=== PATIENT | male | born 1975 | race Caucasian/White ===

== ENCOUNTER 2020-05-22 09:33 | Outpatient (CLI) | payer OTHER, SELFPAY | END 2020-05-22 09:34 | disposition home or self-care (01) | LOC: ANHCOVIDVC 09:33 | PROVIDERS: PCP Internal Medicine | DX: Z23 Encounter for immunization (principal) | CPT/HCPCS: 0001A; 91300 ==

== ENCOUNTER 2020-06-12 09:22 | Outpatient (CLI) | payer OTHER, SELFPAY | END 2020-06-12 09:23 | disposition home or self-care (01) | LOC: ANHCOVIDVC 09:22 | PROVIDERS: PCP Internal Medicine | DX: Z23 Encounter for immunization (principal) | CPT/HCPCS: 0002A; 91300 ==

== ENCOUNTER 2020-06-26 09:57 | Outpatient (CLI) | payer OTHER, SELFPAY ==
[2020-06-26 10:58] LABS: Hematocrit 41.8 % (42.0-52.0); Hemoglobin 13.8 g/dL (14.0-18.0); Mean Corpuscular Hemoglobin 31.9 pg (26-34); Mean Corpuscular Volume 96.5 fl (80-100); Mean Platelet Volume 10.1 fl (7.4-10.4); Platelet Count Result 287 k/mm3 (150-375); Red Blood Count 4.33 M/mm3 (4.6-6.20); Red Cell Distribution Width 12.5 % (11.5-14.5); White Blood Count 4.4 K/mm3 (4.5-10.0)
[2020-06-26 11:52] LABS: Free T4 Free Thyroxine 1.01 ng/mL (0.78-2.19); Vitamin D 25 Hydroxy 29.3 ng/mL
[2020-06-26 11:56] LABS: HIV 1/2 Ab P24 Ag Result Negative (Negative)
[2020-06-26 12:10] LABS: Hepatitis B Surface Antigen Negative (Negative); Rubella IgG Antibody 57.4 IU/ML
[2020-06-26 12:25] LABS: Hepatitis C Virus Antibody Negative (Negative)
[2020-06-26 13:04] LABS: Rapid Plasma Reagin Non-Reactive (NonReactive)
[2020-06-29 08:16] LABS: Prolactin 3.3 ng/mL (***)
== END 2020-06-26 09:58 | disposition home or self-care (01) ==
LOC: ANHLAB 10:20
PROVIDERS: PCP Internal Medicine
DX: Z11.9 Encounter for screening for infectious and parasitic diseases, unspecified (principal); Z13.9 Encounter for screening, unspecified; Z13.21 Encounter for screening for nutritional disorder; Z01.83 Encounter for blood typing
CPT/HCPCS: 36415; 82306; 84146; 84439; 84443; 85027; 86592; 86703; 86762; 86803; 86900; 86901; 87340; G0432

== ENCOUNTER 2020-08-20 07:40 | Outpatient (CLI) | payer OTHER, SELFPAY | END 2020-08-20 07:41 | disposition home or self-care (01) | PROVIDERS: PCP Internal Medicine | DX: N91.2 Amenorrhea, unspecified (principal) | CPT/HCPCS: 36415; 84702 ==

== ENCOUNTER 2020-08-22 08:22 | Outpatient (CLI) | payer OTHER, SELFPAY ==
[2020-08-22 09:09] LABS: Beta HCG Quantitative 66.09 mIU/ML
== END 2020-08-22 08:23 | disposition home or self-care (01) ==
LOC: ANHLAB 08:25
PROVIDERS: PCP Internal Medicine
DX: N91.2 Amenorrhea, unspecified (principal)
CPT/HCPCS: 36415; 84702

== ENCOUNTER 2020-08-25 08:23 | Outpatient (CLI) | payer OTHER, SELFPAY ==
[2020-08-25 09:27] LABS: Beta HCG Quantitative 235.53 mIU/ML
== END 2020-08-25 08:24 | disposition home or self-care (01) ==
PROVIDERS: PCP Internal Medicine
DX: N91.2 Amenorrhea, unspecified (principal)
CPT/HCPCS: 36415; 84702

== ENCOUNTER 2020-09-26 12:28 | Outpatient (CLI) | payer OTHER, SELFPAY ==
[2020-09-26 13:38] LABS: Basophils Percent Auto 0.2 % (0.2-1.2); Eosinophils Absolute Auto 0.1 K/mm3 (0-0.3); Eosinophils Percent Auto 1.3 % (0-4.4); Hematocrit 38.3 % (37.0-47.0); Hemoglobin 12.5 g/dL (12.0-15.0); Immature Granulocyte Absolute 0.04 K/mm3 (0.00-0.031); Immature Granulocyte Percent A 0.4 % (0-0.5); Lymphocytes Absolute Auto 1.67 K/mm3 (0.9-3.2); Lymphocytes Percent Auto 18.1 % (18.3-44.2); Mean Corpuscular HGB Conc 32.6 g/dl (32-36); Mean Corpuscular Hemoglobin 31.9 pg (26-34); Mean Corpuscular Volume 97.7 fl (80-100); Mean Platelet Volume 9.9 fl (7.4-10.4); Monocytes Absolute Auto 0.6 K/mm3 (0.1-0.6); Monocytes Percent Auto 6.2 % (2.6-8.5); Neutrophils Absolute Auto 6.8 K/mm3 (1.3-6.7); Neutrophils Percent Auto 73.8 % (45.5-73.1); Platelet Count Result 346 k/mm3 (150-375); Red Blood Count 3.92 M/mm3 (4.2-5.4); Red Cell Distribution Width 13.2 % (11.5-14.5); White Blood Count 9.2 K/mm3 (4.5-10.0)
[2020-09-26 14:37] LABS: Thyroid Stimulating Hormone Reflex 0.922 uIU/mL (0.465-4.68)
[2020-09-26 14:39] LABS: Hepatitis B Surface Antigen Negative (Negative); Rubella IgG Antibody 50.1 IU/ML
[2020-09-26 14:47] LABS: HIV 1/2 Ab P24 Ag Result Negative (Negative)
[2020-09-29 09:52] LABS: Rapid Plasma Reagin Non-Reactive (NonReactive)
[2020-10-01 05:56] LABS: Progesterone 63.5 ng/mL (***)
== END 2020-09-26 12:29 | disposition home or self-care (01) ==
PROVIDERS: PCP Internal Medicine
DX: Z36.9 Encounter for antenatal screening, unspecified (principal); Z3A.00 Weeks of gestation of pregnancy not specified
CPT/HCPCS: 36415; 84144; 84443; 84702; 85025; 85461; 86592; 86703; 86762; 87086; 87340; G0432

== ENCOUNTER 2021-12-10 21:22 | Emergency (ER) | payer OTHER, SELFPAY ==
--- NOTE | ~2021-12-10 | XR_ITS ---
XR foot LT min 3V 12/10/2021 21:44 Indication: Left foot pain Procedure: 4 views left foot Comparison: No prior studies for comparison. Findings: There is mildly displaced fracture of the fifth proximal phalanx with lateral displacement and angulation. No other fracture. Lisfranc joint intact. Impression: 1: Mildly displaced fracture left fifth proximal phalanx with lateral displacement and angulation. Reviewed, dictated and finalized at location A. Impression: 1: Mildly displaced fracture left fifth proximal phalanx with lateral displacem ent and angulation.
[2021-12-10 21:25] VITALS: BP 123/56; PULSE 79; RESP 18; TEMP 36.6; O2SAT 100
[2021-12-10] MEDS: HYDROcodone/acetaminophen (*CRX) 5-325 MG TABLET 1 TAB PO (23:54)
--- NOTE | 2021-12-11 00:15 | ED.LOWEXIN ---
HPI - Extremity Injury (Lower) General Chief Complaint: Extremity Injury, Lower <Rhina Willis PA-C - Last Filed: 12/11/21 00:22> Stated Complaint: toe pain <GABBI Starks Last Filed: 12/11/21 00:22> Time Seen by Provider: 12/10/21 23:11 <GABBI Starks Last Filed: 12/11/21 00:22> Source: patient <GABBI Starks Last Filed: 12/11/21 00:22> Mode of arrival: ambulatory <GABBI Starks Last Filed: 12/11/21 00:22> Limitations: no limitations <GABBI Starks Last Filed: 12/11/21 00:22> History of Present Illness HPI Narrative: This is a 46-year-old female that presents to the emergency department for an injury to the left fifth toe sustained just prior to arrival. Reports she accidentally hit her foot on the bottom of a couch. Reports pain to the area with decreased range of motion. Denies numbness. <Rhina Willis PA-C - Last Filed: 12/11/21 00:22> Related Data Home Medications: Home Medications Medication Instructions Recorded Confirmed cholecalciferol (vitamin D3) 25 25 mcg PO DAILY 08/26/20 mcg (1,000 unit) capsule dexamethasone 0.75 mg tablet 0.75 mg PO DAILY 08/26/20 folic acid 1 mg tablet 1 mg PO DAILY 08/26/20 prenat.vits,jessi,xqz-edvy-mcgtt 1 tablet PO DAILY 08/26/20 progesterone 50 mg/mL 5 mg IM DAILY 08/26/20 intramuscular oil aspirin 81 mg tablet,delayed 81 mg PO DAILY 03/10/21 03/10/21 release (Adult Low Dose Aspirin) cholecalciferol (vitamin D3) 25 25 mcg PO DAILY 03/10/21 03/10/21 mcg (1,000 unit) capsule docusate sodium 50 mg capsule 50 mg PO DAILY 03/10/21 03/10/21 (Colace Clear) lansoprazole 15 mg capsule,delayed 15 mg PO DAILY 03/10/21 03/10/21 release (Prevacid 24Hr) prenat.vits,jessi,gph-zvix-wdhzt 1 tablet PO DAILY 03/10/21 03/10/21 <Rhina Willis PA-C - Last Filed: 12/11/21 00:22> Allergies/Adverse Reactions: Allergies Allergy/AdvReac Type Severity Reaction Status Date / Time No Known Allergies Allergy Verified 03/13/21 15:09 <Rhina Willis PA-C - Last Filed: 12/11/21 00:22> Review of Systems Review of Systems: CONSTITUTIONAL: Denies fever MUSCULOSKELETAL: Reports joint pain, and myalgia. NEUROLOGIC: Denies numbness <Rhina Willis PA-C - Last Filed: 12/11/21 00:22> All systems reviewed & are unremarkable except as noted in HPI and below <Rhina Willis PA-C - Last Filed: 12/11/21 00:22> PMFSH Past Medical History Medical History: Medical History (Updated 12/11/21 @ 00:22 by Rhina Willis PA-C) Glaucoma <Rhina Willis PA-C - Last Filed: 12/11/21 00:22> Surgical History Surgical History: Surgical History (Updated 03/13/21 @ 15:09 by Janel Cruz) H/O dilation and curettage <Rhina Willis PA-C - Last Filed: 12/11/21 00:22> Family History Family History: Family History (System 03/13/21 @ 15:09 by Janel Cruz) Father Alcoholism Heart problem Sibling Alcoholism <GABBI Starks Last Filed: 12/11/21 00:22> Social History Social History: Social History (System 03/13/21 @ 15:09 by Janel Cruz) Smoking status: Never smoker <Rhina Willis PA-C - Last Filed: 12/11/21 00:22> Exam Narrative: GENERAL: Well-appearing, well-nourished, and in no acute distress. HEAD: Normocephalic, atraumatic. EYES: EOMI. EXTREMITIES: Decreased active range of motion in the left fifth toe with obvious deformity. Normal DP pulse. Normal sensation SKIN: Warm, dry, no rash. NEURO: No focal deficits. Alert and oriented x3. PSYCH: Normal mood and affect <Rhina Willis PA-C - Last Filed: 12/11/21 00:22> Course HCC CODERS/PA Physician Supervision For this patient encounter, I reviewed the HCC CODERS or PA documentation, treatment plan, and medical decision making <Juan Pablo Javier MD - Last Filed: 12/11/21 01:05> Vital Signs Vital signs: Vital Signs Temperature 97.9 F 12/10/21 21:25 Pulse Ra
[2021-12-11 00:36] VITALS: BP 124/69; PULSE 72; RESP 18; O2SAT 96
== END 2021-12-11 00:36 | disposition home or self-care (01) ==
PROVIDERS: Emergency Provider Emergency Medicine; PCP Internal Medicine
DX: S92.512A Displaced fracture of proximal phalanx of left lesser toe(s), initial encounter for closed fracture (principal); H40.9 Unspecified glaucoma; Z79.82 Long term (current) use of aspirin; W22.03XA Walked into furniture, initial encounter
CPT/HCPCS: 28515; 28660; 73630; 99283; 99285; A9270

== ENCOUNTER 2022-03-27 08:37 | Outpatient (CLI) | payer OTHER, SELFPAY ==
[2022-03-27 09:12] LABS: Eosinophils Absolute Auto 0.1 K/mm3 (0-0.3); Eosinophils Percent Auto 1.7 % (0-4.4); Hematocrit 39.1 % (37.0-47.0); Hemoglobin 12.7 g/dL (12.0-15.0); Immature Granulocyte Absolute 0.01 K/mm3 (0.00-0.031); Immature Granulocyte Percent A 0.2 % (0-0.5); Lymphocytes Absolute Auto 1.28 K/mm3 (0.9-3.2); Lymphocytes Percent Auto 31.4 % (18.3-44.2); Mean Corpuscular HGB Conc 32.5 g/dl (32-36); Mean Corpuscular Hemoglobin 31.1 pg (26-34); Mean Corpuscular Volume 95.8 fl (80-100); Mean Platelet Volume 9.6 fl (7.4-10.4); Monocytes Absolute Auto 0.4 K/mm3 (0.1-0.6); Monocytes Percent Auto 8.6 % (2.6-8.5); Neutrophils Absolute Auto 2.3 K/mm3 (1.3-6.7); Neutrophils Percent Auto 57.1 % (45.5-73.1); Platelet Count Result 270 k/mm3 (150-375); Red Blood Count 4.08 M/mm3 (4.2-5.4); Red Cell Distribution Width 12.2 % (11.5-14.5); White Blood Count 4.1 K/mm3 (4.5-10.0)
[2022-03-27 09:40] LABS: Vitamin D 25 Hydroxy 27.7 ng/mL
[2022-03-27 09:52] LABS: Alanine Aminotransferase 17 U/L (6-35); Albumin Level 4.1 g/dL (3.5-5.1); Alkaline Phosphatase 92 U/L (38-126); Anion Gap 6 mmol/L (8-16); Aspartate Amino Transferase 22 U/L (14-36); Bilirubin,Total 0.5 mg/dL (0.2-1.3); Blood Urea Nitrogen 14 mg/dL (7-17); Calcium 8.7 mg/dL (8.4-10.2); Carbon Dioxide 28 mmol/L (22-30); Chloride 106 mmol/L (98-107); Cholesterol 219 mg/dL (0-200); Estimated Glomerular Filt Rate > 60; Glucose 93 mg/dL (65-110); HDL Direct 38 mg/dL; Potassium 4.1 mmol/L (3.4-5.0); Sodium 140 mmol/L (137-145); Triglycerides 186 mg/dL (<150)
[2022-03-27 10:03] LABS: LDL Cholesterol Direct 116 mg/dL
[2022-03-27 10:57] LABS: Folic Acid 19.1 ng/mL (2.76->20)
== END 2022-03-27 08:38 | disposition home or self-care (01) ==
LOC: ANHLAB 08:39
PROVIDERS: PCP Internal Medicine; Visit Provider Internal Medicine
DX: Z00.00 Encounter for general adult medical examination without abnormal findings (principal); R53.83 Other fatigue; R79.89 Other specified abnormal findings of blood chemistry
CPT/HCPCS: 36415; 80053; 80061; 82306; 82607; 82746; 84443; 85025

== ENCOUNTER → 2023-04-02 09:48 | Outpatient (CLI) | payer OTHER, SELFPAY ==
--- NOTE | ~2023-04-02 | MM_ITS ---
EXAMINATION: MM screening socorro BI w james HISTORY: Screening TECHNIQUE: Craniocaudal and mediolateral oblique 3-D tomosynthesis images were obtained and synthetic 2-D images were generated. CAD analysis was submitted and interpreted. COMPARISON: No prior mammogram is available for comparison at this institution. BREAST PARENCHYMAL COMPOSITION: There are scattered areas of fibroglandular density. FINDINGS: There is no evidence of suspicious mass, calcification, or architectural distortion to sugg est malignancy in either breast. There has been no suspicious interval change. IMPRESSION: 1. No mammographic evidence of malignancy. 2. Recommend routine screening mammography in one year. BI-RADS Category 1: Negative Reviewed, dictated and finalized at location A. OSION CONTROL SPECIALIST
== END ==
DX: Z12.31 Encounter for screening mammogram for malignant neoplasm of breast (principal)
CPT/HCPCS: 77063; 77067

== ENCOUNTER 2023-07-25 09:38 | Outpatient (CLI) | payer OTHER, SELFPAY ==
[2023-07-25 10:47] LABS: Basophils Percent Auto 0.9 % (0.2-1.2); Eosinophils Absolute Auto 0.1 K/mm3 (0-0.3); Eosinophils Percent Auto 1.5 % (0-4.4); Hematocrit 39.7 % (37.0-47.0); Hemoglobin 12.8 g/dL (12.0-15.0); Immature Granulocyte Absolute 0.01 K/mm3 (0.00-0.031); Immature Granulocyte Percent A 0.3 % (0-0.5); Lymphocytes Absolute Auto 1.19 K/mm3 (0.9-3.2); Lymphocytes Percent Auto 36.8 % (18.3-44.2); Mean Corpuscular HGB Conc 32.2 g/dl (32-36); Mean Corpuscular Hemoglobin 31.5 pg (26-34); Mean Corpuscular Volume 97.8 fl (80-100); Mean Platelet Volume 10.3 fl (7.4-10.4); Monocytes Absolute Auto 0.3 K/mm3 (0.1-0.6); Monocytes Percent Auto 7.7 % (2.6-8.5); Neutrophils Absolute Auto 1.7 K/mm3 (1.3-6.7); Neutrophils Percent Auto 52.8 % (45.5-73.1); Platelet Count Result 259 k/mm3 (150-375); Red Blood Count 4.06 M/mm3 (4.2-5.4); Red Cell Distribution Width 12.9 % (11.5-14.5); White Blood Count 3.2 K/mm3 (4.5-10.0)
[2023-07-25 11:03] LABS: Alanine Aminotransferase 17 U/L (6-35); Albumin Level 4.6 g/dL (3.5-5.1); Alkaline Phosphatase 89 U/L (38-126); Anion Gap 7 mmol/L (4-12); Aspartate Amino Transferase 24 U/L (14-36); Bilirubin,Total 0.7 mg/dL (0.2-1.3); Blood Urea Nitrogen 15 mg/dL (7-17); Calcium 9.1 mg/dL (8.4-10.2); Carbon Dioxide 29 mmol/L (22-30); Chloride 104 mmol/L (98-107); Cholesterol 213 mg/dL (0-200); Estimated Glomerular Filt Rate > 60; Glucose 86 mg/dL (65-110); HDL Direct 44 mg/dL; Sodium 140 mmol/L (137-145); Triglycerides 123 mg/dL (<150)
[2023-07-25 11:15] LABS: LDL Cholesterol Direct 131 mg/dL
[2023-07-25 11:43] LABS: Vitamin D 25 Hydroxy 35.4 ng/mL
== END 2023-07-25 09:39 | disposition home or self-care (01) ==
PROVIDERS: Visit Provider Emergency Medicine
DX: R53.83 Other fatigue (principal); E78.1 Pure hyperglyceridemia
CPT/HCPCS: 36415; 80053; 80061; 82306; 82607; 85025

== ENCOUNTER 2023-12-01 09:54 | Outpatient (CLI) | payer OTHER, SELFPAY ==
[2023-12-02 12:08] LABS: FSH 52.7 mIU/mL
== END 2023-12-01 09:55 | disposition home or self-care (01) ==
LOC: ANHLAB 09:57
DX: N95.1 Menopausal and female climacteric states (principal)
CPT/HCPCS: 36415; 83001; 84443

== ENCOUNTER 2023-12-16 15:02 | Emergency (ER) | payer OTHER, SELFPAY ==
[2023-12-16 15:13] VITALS: BP 109/60; PULSE 108; RESP 18; TEMP 37; O2SAT 99
--- NOTE | 2023-12-16 15:16 | ED.URI ---
HPI - URI/Sore Throat General Chief Complaint: Upper Respiratory Infection Stated Complaint: sore throat / fever Time Seen by Provider: 12/16/23 15:16 Source: patient, RN notes reviewed and old records reviewed Mode of arrival: ambulatory Limitations: no limitations History of Present Illness HPI Narrative: patient presents with complaints of nasal congestion, left ear pain, sore throat, fever. She reports symptoms began yesterday she has been taking Tylenol and ibuprofen with good results. She reports T-max of 100.9?. No difficulty swallowing. No shortness of breath. No cough. Denies any other concerns at this time Related Data Allergies Allergy/AdvReac Type Severity Reaction Status Date / Time No Known Allergies Allergy Verified 12/16/23 15:20 Review of Systems Review of Systems: All systems reviewed & are unremarkable except as noted in HPI and below Constitutional: Constitutional: Reports no additional constitutional complaints ENT: Reports system reviewed and no additional complaints, except as documented, Reports as per HPI, Reports otalgia, Reports nasal congestion, Reports nasal discharge and Reports sore throat Cardiovascular: Cardiovascular: Reports no additional cardiovascular complaints Respiratory: Respiratory: Reports no additional respiratory complaints Gastrointestinal: Gastrointestinal: Reports no additional gastrointestinal complaints [facility] Past Medical History Medical History (Updated 12/16/23 @ 15:27 by Jacquelin Hector APRN) delivery delivered Glaucoma Surgical History Surgical History H/O dilation and curettage Family History Family History Father Alcoholism Heart problem Sibling Alcoholism Grandparent Bladder cancer Diabetes mellitus Cerebrovascular accident Social History Social History Smoking status: Never smoker Alcohol intake: current Alcohol use details: 3 x monthly Substance use: never Do You Feel Safe in your Home?: Yes Lack of Transportation: No Lack of Food: Never True Current Housing: I Have Housing Concerned About Future Housing: No Difficulty Paying Gas/Electric Bills: No Difficulty Paying for Meds: No Currently Unemployed: No Education: Master's Degree or Higher Difficulty w/ Childcare or Family Care: No Comments At the time of my signature, I reviewed and agree with the nursing past medical, surgical, social, and family history. There is no relevant family history pertinent to the patient complaint. Exam Const: General: cooperative, no acute distress, alert and awake Orientation/consciousness: oriented to person, oriented to place and oriented to time HENMT: Head: normal to inspection Ears: TM abnormal bulging on the left, dull on the left and erythematous on the left Mouth: Yes moist mucous membranes Throat: posterior oropharynx abnormal erythema Resp: Effort & Inspection: normal respiratory effort and able to speak in complete sentences Auscultation: clear to auscultation bilaterally, no crackles, no rales, no rhonchi and no wheezes Cardio: Palpation: normal PMI Rate: regular rate Rhythm: regular rhythm Heart sounds: S1 normal heart sound present and S2 normal heart sound present Neuro: General: oriented to person, oriented to place and oriented to time Cranial nerves: Yes CN's II-XII intact bilaterally Psych: Appearance: grossly normal Thought process: Normal thought process present Insight: Good insight present (Psych) Judgement: Good judgement present (Psych) Course Course Level of Care: Express Care Visit Vital Signs Vital signs: Vital Signs Temperature 98.6 F 12/16/23 15:13 Pulse Rate 108 H 12/16/23 15:13 Respiratory Rate 18 12/16/23 15:13 Blood Pressure 109/60 12/16/23 15:13 Pulse Oximetry 99 12/16/23 15:1
== END 2023-12-16 15:31 | disposition home or self-care (01) ==
PROVIDERS: Emergency Provider Nurse Practitioner Family
DX: H66.002 Acute suppurative otitis media without spontaneous rupture of ear drum, left ear (principal); H40.9 Unspecified glaucoma
CPT/HCPCS: 99213; G0463

== ENCOUNTER 2024-09-15 07:54 | Outpatient (CLI) | payer OTHER, SELFPAY ==
--- NOTE | ~2024-09-15 | MM_ITS ---
EXAMINATION: MM screening socorro BI w james HISTORY: Screening TECHNIQUE: Craniocaudal and mediolateral oblique 3-D tomosynthesis images were obtained and synthetic 2-D images were generated. CAD analysis was submitted and interpreted. COMPARISON: 04/02/2023 BREAST PARENCHYMAL COMPOSITION: Not dense: There are scattered areas of fibroglandular density. FINDINGS: There is no evidence of suspicious mass, calcification, or architectural distortion to sugg est malignancy in either breast. There has been no suspicious interval change. IMPRESSION: 1. No mammographic evidence of malignancy. 2. Recommend routine screening mammography in one year. BI-RADS Category 1: Negative Reviewed, dictated and finalized at location []
== END 2024-09-15 07:55 | disposition home or self-care (01) ==
LOC: MICIMG 07:54
DX: Z12.31 Encounter for screening mammogram for malignant neoplasm of breast (principal)
CPT/HCPCS: 77063; 77067

== ENCOUNTER 2025-02-19 09:54 | Outpatient (CLI) | payer OTHER, SELFPAY ==
--- OUTSIDE RECORDS SUMMARY | 2025-02-19 11:15 | XMS_ITS | Clinical Summary ---
Author Organization [facility] Address [address] [place] [id number] Care Team Providers Care Machinist Set Up Name Role Phone Zafar Naranjo MD Primary Care Provider [phone] Allergies No known active allergies Medications norethindrone (MICRONOR) 0.35 mg tablet Take 1 tablet by mouth daily 2 Active meloxicam (MOBIC) 15 mg tablet Take 1 daily for 7-14 days, then 1 daily as needed. Do not take other anti-inflammatory medication with this prescription. May take acetaminophen as needed with this prescription. 30 tablet 1 4 Active Active Problems Problem Noted Date Diagnosed Date Encounter for removal of sutures 09/28/2017 Anovulation 01/31/2017 Encounter for contraceptive management 7 Rosacea 12/10/2015 Keratosis, senilis 12/10/2015 Multiple benign melanocytic nevi 12/10/2015 Tendinitis of left rotator cuff 03/20/2015 Surgical History Surgery Date Site/Laterality Comments SECTION Family History Medical History Relation Name Comments Alcohol abuse Father Alcohol addict ion - (Added by TW Conv) Arthritis Father Family history of arthritis - (Added by TW Conv) Gout Father Family history of gout - (Added by TW Conv) Hypertension Other Reported Previo us High Blood Pressure - Father (Added by TW Conv) Lung disease Other Pulmonary Disea se - Father (Added by TW Conv) Relation Name Status Comments Father Other Social History Tobacco Use Types Packs/Day Years Used Date Smoking Tobacco: Never Passive Smoke Exposure: Never Smokeless Tobacco: Never Tobacco Cessation:Counseling Given: Not Answered Comments Unknown Sex and Gender Information Value Date Recorded Sex Assigned at Not on file Legal Sex Female 12:35 PM PRESSURE WELDER Gender Identity Not on file Sexual Orientation Not on file Last Filed Vital Signs Vital Sign Reading Time Taken Comments Blood Pressure 109/73 03/29/2017 8:11 AM PRESSURE WELDER Pulse - - Temperature - - Respiratory Rate - - Oxygen Saturation - - Inhaled Oxygen Concentration - - Weight 64.9 kg (143 lb) 02/01/2024 12:36 PM PRESSURE WELDER Height 167.6 cm (5' 6) 02/01/2024 12:36 PM PRESSURE WELDER Body Mass Index 23.08 02/01/2024 12:36 PM PRESSURE WELDER Plan of Treatment Health Maintenance Due Date Last Done Comments Breast Cancer Screening-Mammogram 1976 Cervical Cancer Screening 1976 Colon Cancer Screening-Colonoscopy 1976 Depression Screening 1976 Hepatitis C Screening 1976 Hepatitis B Screening 01/24/1994 Regular Well Visit/Exam 18-64 01/24/1994 Covid-19 Vaccine ( season) 2024 12/03/2021, 02/09/2021, 06/12/2020, Additional history exists Influenza Vaccine (#1) 2024 , 12/03/2021, 12/08/2020, Additional history exists DTaP/Tdap/Td Vaccine (5 - Td or Tdap) 02/02/2031 02/02/2021, 08/03/2019, 07/14/2017, Additional history exists Pneumococcal vaccine <65 Aged Out No longer eligible based on patient's age to [place] [address] [facility] Care Teams Machinist Set Up Relationship Specialty Start [place] [address] [place] [address] PCP - General Internal Medicine 02/01/24
--- OUTSIDE RECORDS SUMMARY | 2025-02-19 11:15 | XMS_ITS | Clinical Summary ---
Author Organization [facility] Address [address] [place] [address] Care Team Providers Care Tar Worker Name Role Phone Jaimee Mcgee MD Primary Care Provider [phone] Source Comments [facility],non-owned Affiliates and Associated Physician Practices is amultiple site organization consisting of ambulatory clinics and hospital sitesin [place], [place], [place] and [place]. This disclosure is being madepursuant to the Care Everywhere program and may not contain all information available regarding this patient. Last updated 17.[facility] [employer] Allergies No known active allergies Active Problems Problem Noted Date Diagnosed Date Laceration 12/15/2009 Immunizations Immunization Administration Dates Next Due INFLUENZA VACCINE, TRIV. (FL UZONE; FLULAVAL; FLUARIX; AFLURIA TRIVALENT; 6MO+), 0.5 ML (IIV3) 12/19/2023 Social History Tobacco Use Types Packs/Day Years Used Date Smoking Tobacco: Never Alcohol Use Standard Drinks/Week Comments Yes 0 (1 standard drink = 0.6 oz pur e alcohol) social Comments Unknown Sex and Gender Information Value Date Recorded Sex Assigned at Not on file Legal Sex Female 9:27 AM STUNTMAN Gender Identity Not on file Sexual Orientation Not on file Last Filed Vital Signs Vital Sign Reading Time Taken Comments Blood Pressure 114/74 12/15/2009 6:28 PM CDT Pulse 73 12/15/2009 6:28 PM CDT Temperature 37.1 C (98.8 F) 12/15/2009 6:28 PM CDT Respiratory Rate 16 12/15/2009 6:28 PM CDT Oxygen Saturation 100% 12/15/2009 6:28 PM CDT Inhaled Oxygen Concentration - - Weight 59 kg (130 lb) 12/15/2009 6:28 PM CDT Height 167.6 cm (5' 6) 12/15/2009 6:28 PM CDT Body Mass Index 20.98 12/15/2009 6:28 PM CDT Plan of Treatment Health Maintenance Due Date Last Done Comments COLOGUARD (AGES 45-75) - COLON CA SCREENING 1976 COLON MONITORING 1976 COLONOSCOPY - COLON CA SCREENING 1976 CT COLONOGRAPHY - COLON CA SCREENING 1976 Colorectal Cancer Screening 1976 FIT - COLON CA SCREENING 1976 FLEX SIG - COLON CA SCREENING 1976 LIPID TESTING 1976 MAMMOGRAM 1976 HIV SCREENING 01/24/1991 HEPATITIS C SCREENING 01/20/1994 DTAP/TDAP/TD VACCINES (1 - Tdap) 01/24/1995 HEPATITIS B VACCINE (1 of 3 - 19+ 3-dose series) 01/24/1995 PAP SMEAR 01/24/1997 DEPRESSION SCREENING 03/07/2024 COVID-19 VACCINE ( season) 2024 12/25/2022, 12/03/2021, 02/09/2021, Additional history exists INFLUENZA VACCINE (#1) 2024 , 12/25/2022, 12/03/2021, Additional history exists ZOSTER VACCINE (1 of 2) 01/24/2026 HIB VACCINE Aged Out No longer eligi ble based on patient's age to complete this topic HPV VACCINE Aged Out No longer eligi ble based on patient's age to complete this topic MENINGOCOCCAL (Group B) VACCINE SHARED DECISION-MAKING Aged Out No longer eligible based on patient's age to complete this topic MENINGOCOCCAL GROUPS A/C/Y/W VACCINE Aged Out No longer eligible based on patient's age to complete this topic Insurance [facility] Care Teams Tar Worker Relationship Specialty [place] [address] [facility] [address] [place] [address] PCP - General 12/15/09
--- OUTSIDE RECORDS SUMMARY | 2025-02-19 11:16 | XMS_ITS | Clinical Summary ---
Author Organization [facility] Address [address] [place] [phone] Phone Care Team Providers Care Marble Helper Name Role Phone Zafar Naranjo MD Primary Care Provider Allergies No known active allergies Medications progesterone micronized (Prometrium) 200 mg Capsule Take 1 Capsule (200 mg) by mouth daily. 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 Resolved Problems Problem Noted Date Diagnosed Date Resolved Date Pituitary microadenoma with hyperprolactinemia 01/05/2016 03/19/2024 Simple ovarian cyst 12/09/2010 06/08/19 20 Encounters Date Type Department Care Team Description 02/05/2025 External Device Data [facility] ABSTRACTION Provider, Abstract 01/08/2025 External Device Data [facility] ABSTRACTION Provider, Abstract 01/02/2025 External Device Data [facility] ABSTRACTION Provider, Abstract 01/02/2025 External Device Data [facility] ABSTRACTION Provider, Abstract 12/26/2024 External Device Data [facility] ABSTRACTION Provider, Abstract 11/20/2024 External Device Data [facility] ABSTRACTION Provider, Abstract from Last 3 Months Immunizations Immunization Administration Dates Next Due (ADACEL/BOOSTRIX)(10 YR UP) TDAP VACCINE, 0.5ML, IM 02/02/2021,08/03/2019,07/14/2017,2008 INFLUENZA VACCINE QUADRIVALE NT 6 MOS UP CELL DERIVED PF IM 11/24/2016 INFLUENZA VACCINE QUADRIVALE NT 6 MOS UP PF IM 12/08/2020 INFLUENZA VACCINE TRIVALENT MDCK, (6 MOS UP), 0.5ML (PF), IM 02/17/2024 Influenza Seasonal Unspecifi ed Formulation IM 11/28/2018,12/07/2017,12/05/2016,2012,01/06/2012,12/15/2011 Influenza Vaccine Quad Split 3+ Yrs Pf Im 11/26/2013 Influenza Vaccine Split 3+ Yrs PF IM 11/21/2014 Family History Medical History Relation Name Comments Heart Disease Father AFib Hypertension Father Diabetes Maternal Grandfather Hypertension Maternal Grandmother Stroke Maternal Grandmother Alzheimer's Disease Paternal Grandfather Relation Name Status Comments Brother X2 Alive Father Alive Maternal Grandfather Maternal Grandmother Mother Alive Paternal Grandfather Sister X3 Alive Social History Tobacco Use Types Packs/Day Years Used Date Smoking Tobacco: Never Passive Smoke Exposure: Never Smokeless Tobacco: Never Tobacco Cessation:Counseling Given: No Alcohol Use Standard Drinks/Week Comments Yes 0 (1 standard drink = 0.6 oz pur e alcohol) ocassionally Comments No Sex and Gender Information Value Date Recorded Sex Assigned at Not on file Legal Sex Female 6:02 AM REFRIGERATOR CRATER Gender Identity Not on file Sexual Orientation Not on file Occupation Industry Job Start Date Job End Date Not on file Not on file Not on file Not on file Last Filed Vital Signs Vital Sign Reading Time Taken Comments Blood Pressure 110/64 05/07/2024 11:27 AM REFRIGERATOR CRATER Pulse 81 03/19/2024 1:18 PM REFRIGERATOR CRATER Temperature 36.4 C (97.6 F) 03/19/2024 1:18 PM REFRIGERATOR CRATER Respiratory Rate 18 04/25/2021 7:37 AM REFRIGERATOR CRATER Oxygen Saturation 99% 03/19/2024 1:18 PM REFRIGERATOR CRATER Inhaled Oxygen Concentration - - Weight 67.1 kg (148 lb) 05/07/2024 11:27 AM REFRIGERATOR CRATER Height 167.6 cm (5' 6) 05/07/2024 11:27 AM REFRIGERATOR CRATER Body Mass Index 23.89 05/07/2024 11:27 AM REFRIGERATOR CRATER Plan of Treatment Upcoming Encounters Date Type Department Care Team (Late st Contact Info) Description 09/18/2025 11:00 AM CDT Office Visit [facility] [address] [place] [phone] [place] [address] [place] [phone] Health Maintenance Due Date Last Done Comments HEPATITIS B VACCINES (1 of 3 - 19+ 3-dose series) 01/24/1995 COLORECTAL SCREENING 01/24/2021 FIT/FOBT Q 1 year 01/24/2021 10/20/2015 Flex Sig/CT Colonography Q 5 years 01/24/2021 INFLUENZA VACCINE (#1) 2024 , 12/08/2020, 11/28/2018, Additional history exists BREAST CANCER SCREENING 09/15/2025 09/16/19 25, 02/15/2017, 01/26/2016 PAP SMEAR 01/03/2026 01/03/2023, 09/04, 07/27/2021, Additional history exists Colorectal Cancer Screening 04/24/2026 FIT-DNA Q 3 years 04/24/2026 04/24/2023 CERVICAL CANCER SCREENING 01/04/2028 HPV/Cotest (21-29) 01/04/2028 01/03/2023, 0 09/21/2022, 07/27/2021, Additional history exists HPV/Cotest (30-65) 01/04/2028 01/03/2023, 0 09/21/2022, 07/27/2021, Additional history exists DTAP/TDAP/TD VACCINES (5 - T d or Tdap) 02/02/2031 02/02/2021, 08/03/2019, 07/14/2017, Additional history exists Preventative Visit- Commercial Completed 0 05/07/2024, 03/19/2024, 07/20/2018, Additional history exists Procedures Procedure Name Priority Date/Time Associated Diagnosis Comments MAMMO 3D BENITEZ DIAGNOSTIC BILAT W OR WO CAD Routine 09/15/2024 11:12 AM CDT CERV/VAG CYTO AGE BASED SCREEN PAP Routine 01/03/2023 12:48 PM CDT Unsatisfactory cervical Papanicolaou smear OCCULT BLOOD IMMUNOASSAY, COLORECTAL SCREEN Routine 10/20/2015 10:54 AM CDT BRBPR (bright red blood per rectum) from Last 3 Months or Most Recently Relevant to Health Maintenance Results * MAMMO 3D BENITEZ DIAGNOSTIC BILAT W OR WO CAD (09/15/2024 11:12 AM CDT) Anatomical Region Laterality Modality Breast Bilateral Mammography us Abstract Provider MAMMO ORDERABLES Final Result * CERV/VAG CYTO AGE BASED SCREEN PAP (01/03/2023 12:48 PM CDT) COMMENT (PAP): [facility] Comment: This order for age-based cervical cancer and STI screening follows ACOG guidelines(PB 168, 140, YVT121). See individual assays for performing site location. CLINICAL INFORMATION [facility] Comment:None given LAST MENSTRUAL PERIOD [facility] Comment:11/01/2022 PREV PAP: [facility] Comment:NONE GIVEN PREV BX: [facility] Comment:NONE GIVEN SOURCE [facility] Comment:Endocervix ADEQUACY: [facility] Comment: Satisfactory for evaluation. Endocervical/transformation zone component present. PAP INTERP [facility] Comment: Cytology Results: Negative for intraepithelial lesion or malignancy. COMMENT (PAP TEST) [facility] Comment: This Pap test has been evaluated with computer assisted technology. CAKE INSPECTOR: Aramis Tierney Comment: KMS CT(ASCP) CT Screening location: [place] [address] [place] [address] Joelle Tierney Comment: EXPLANATORY NOTE: The Pap is a screening test for cervical cancer. It is not a diagnostic test and is subject to false negative and false positive results. It is most reliable when a satisfactory sample, regularly obtained, is submitted with relevant clinical findings and history, and when the Pap result is evaluated along with historic and current clinical information. HPV E6/E7 Not Detected Not Detected [facility] Comment: Methodology: Sidehand-Mediated Amplification This assay detects E6/E7 viral messenger RNA (mRNA) from 14 high-risk HPV types (16,18,31,33,35,39,45,51,52,56,58,59,66,68). Cervical sources are required for HPV testing. If a vaginal source from a patient who has had a total hysterectomy with removal of cervix was submitted, please contact the testing laboratory for alternative testing options. For additional information, please refer to http://education.[employer]/faq/LFO161y1 (This link if provided for information/ educational purposes only.) Test [facility]formed at: [facility] [address] [place] [address] Lana LARKIN Genital SWAB OF ENDOCERVIX / Unknown 01/03/2023 12:48 PM CDT 01/04/2023 5:28 AM CDT Rios Roberson MD PATHOLOGY/CYTOLOGY ORDERABLES Fi nal Result [facility] [phone] [facility] [id number] [place] [phone] * OCCULT BLOOD IMMUNOASSAY, COLORECTAL SCREEN (10/20/2015 10:54 AM CDT) OCCULT BLOOD, STOOL Negative Negative 10/20/2015 11:41 AM CDT [facility] Stool STOOL SPECIMEN / Unknown Collection / Unknown 10/20/2015 10:54 AM CDT 10/20/2015 11:22 AM CDT Zafar Naranjo MD BODY FLUIDS AND STOOLS Wanda l Result [facility] [employer] CLIA# [id number] [address] [place] [address] from Last 3 Months or Most Recently Relevant to Health Maintenance Insurance [facility] CHOICE [id number] Advance Directives For more information, please contact: [phone] * Full Code (Latest Code Status on File) Date Activated Date Inactivated Comments 04/22/2021 3:45 PM 04/25/2021 4:05 PM * Full Code Date Activated Date Inactivated Comments 10/31/2019 4:31 AM 11/01/2019 1:03 PM * Full Code Date Activated Date Inactivated Comments 10/29/2019 12:15 PM 10/31/2019 4:31 AM Care Teams Marble Helper Relationship Specialty Start [place] [address] [place] [address] PCP - General Internal Medicine 03/19/24
[2025-02-20 11:09] LABS: FSH 13.0 mIU/mL (.)
== END 2025-02-19 09:55 | disposition home or self-care (01) ==
LOC: ANHLAB 09:54
PROVIDERS: Visit Provider Obstetrics & Gynecology
DX: N91.2 Amenorrhea, unspecified (principal)
CPT/HCPCS: 83001